=== PATIENT | female | born 1970 | race Caucasian/White ===

== ENCOUNTER → 2016-08-10 | Outpatient (CLI) | payer BC ==
--- NOTE | ~2016-08-10 | MR18 ---
[facility] A Service of [facility] & [facility] RADIOLOGY TEXT RESULTS PATIENT: BUFFY GONZALES LOCATION: [facility] : 70 UNIT #: [id number] AGE: [address]: Adolph Bell MD SEX: F ORDER DR: [id number] [facility] [address] [place], [place] [address] [id number] O MR#: [id number] #: [id number] NAME: BUFFY GONZALES. : 1970 SEX: F STUDY DATE/TIME: 08/10/2016 15:35 UNIT: [facility] ROOM: STUDY DESCRIPTION: MR Brain Wo Contrast Attending Physician: Adolph Bell M.D. Referring Physician: Adolph Bell M.D. Ordering Physician: Adolph Bell M.D. Primary Care Physician: Adolph Bell M.D. MRI CENTER REPORT This report is preliminary unless electronic signature is present. EXAM Brain MRI HISTORY Dizziness over the past month. Redness in the left eye beginning 2-3 weeks ago but improving since. Dizziness is worse when changing positions. TECHNIQUE Multiplanar imaging of the brain was performed including diffusion weighted images. FINDINGS On diffusion weighted images, there is no evidence of abnormal restricted diffusion to suggest a recent infarct. The routine brain images show a single focus of bright FLAIR signal in the left frontal deep white matter likely related to trivial chronic deep white matter ischemic change. The ventricles are normal in size. There is no evidence of mass lesion, hemorrhage or edema. Extraaxial structures are unremarkable. IMPRESSION Essentially negative brain MRI. There is a single tiny focus of bright FLAIR signal in the left frontal deep white matter likely the sequelae of previous chronic deep white matter infarction or perhaps trauma. No other white matter signal abnormalities are seen. No evidence of recent infarct. STAT * RESULT Dictated by... Martinez Hussein M.D. THIS IS AN ELECTRONICALLY VERIFIED REPORT [facility] A Service of [facility] & [facility] RADIOLOGY TEXT RESULTS PATIENT: BUFFY GONZALES LOCATION: [facility]T #: [id number] : 70 UNIT #: [id number] AGE: [address]: Adolph Bell MD SEX: F ORDER DR: Martinez Hussein M.D. at 08/11/2016 4:39 PM SUHAS/milagros TD: 08/11/2016 09:00 JOB #: [id number] MRI CENTER REPORT Page 1 of 1 COPY
== END | disposition home or self-care (01) ==
LOC: CECH 14:08
DX: R42 Dizziness and giddiness (principal); I07.1 Rheumatic tricuspid insufficiency; Z86.79 Personal history of other diseases of the circulatory system
CPT/HCPCS: 70551; 93306